=== PATIENT | female | born 1980 | race American Indian/Alaskan Native ===

== ENCOUNTER 2016-11-05 14:29 | Emergency (ER) | payer MEDICAID, OTHER ==
[2016-11-05 16:21] VITALS: BP 101/57
--- NOTE | 2016-11-05 17:54 | EDM.PDOC ---
ED HPI GENERAL MEDICAL PROBLEM - General Chief Complaint: Genitourinary Problem Stated Complaint: SICK, VOMITING, HEADACHE, PAIN IN LOWER BACK Time Seen by Provider: 11/05/16 17:51 Source of Information: Reports: Patient History Limitations: Reports: No Limitations - History of Present Illness INITIAL COMMENTS - FREE TEXT/NARRATIVE: 36 yo female presents with c/o bialteral flank pain and possible UTI. States that she has only a right kidney and on Monday she began having flulike symptoms that have decreased but now she is having the flank pain. States that she is incontinent due to previous injury. States that seh did have vomiting of phlegm on Monday as well. No other complaints Onset: Gradual Onset Date: 10/31/16 Duration: Getting Worse Location: Reports: Abdomen, Back Quality: Reports: Ache Severity: Moderate Improves with: Reports: None Worsens with: Reports: None Associated Symptoms: Reports: No Other Symptoms Bilateral Flank Pain Score (Numeric/FACES): 10 - Related Data Allergies Allergy/AdvReac Type Severity Reaction Status Date / Time morphine Allergy Vomiting Verified 03/08/16 19:44 Home Meds: Home Meds Ibuprofen [Advil] 200 mg PO Q6H PRN 02/04/13 [History] Past Medical History - Past Health History Medical/Surgical History: Denies Medical/Surgical History Genitourinary History: Reports: UTI, Recurrent, Other (See Below) Other Genitourinary History: kidney removed, History of spina befida - Past Surgical History GI Surgical History: Reports: Cholecystectomy Female Surgical History: Reports: Section, Other (See Below) Social & Family History - Family History Family Medical History: Noncontributory - Tobacco Use Smoking Status *Q: Never Smoker Second Hand Smoke Exposure: No - Caffeine Use Caffeine Use: Reports: Coffee, Soda - Alcohol Use Days Per Week of Alcohol Use: 2 Number of Drinks Per Day: 4 Total Drinks Per Week: 8 - Recreational Drug Use Recreational Drug Use: No ED ROS GENERAL - Review of Systems Review Of Systems: ROS reveals no pertinent complaints other than HPI. ED EXAM, RENAL/ - Physical Exam Exam: See Below Exam Limited By: No Limitations General Appearance: Alert, WD/WN, No Apparent Distress Respiratory/Chest: No Respiratory Distress, Lungs Clear, Normal Breath Sounds, No Accessory Muscle Use, Chest Non-Tender Cardiovascular: Normal Peripheral Pulses, Regular Rate, Rhythm, No Edema, No Gallop, No JVD, No Murmur, No Rub GI/Abdominal: Normal Bowel Sounds, Soft, Non-Tender, No Organomegaly, No Distention, No Abnormal Bruit, No Mass Back Exam: Normal Inspection, Full Range of Motion, CVA Tenderness (R) Extremities: Normal Inspection, Normal Range of Motion, Non-Tender, Normal Capillary Refill, No Pedal Edema Neurological: Alert, Oriented, CN II-XII Intact, Normal Cognition, Normal Gait, No Motor/Sensory Deficits Skin Exam: Warm, Dry, Intact, Normal Color, No Rash Course - Vital Signs Last Recorded V/S: Last Vital Signs Temp 98.8 F 11/05/16 16:20 Pulse 90 11/05/16 16:20 Resp 16 11/05/16 16:20 BP 101/57 L 11/05/16 16:20 Pulse Ox 100 11/05/16 16:20 - Orders/Labs/Meds Orders: Active Orders 24 hr Category Date Time Status CULTURE URINE [RM] Stat Lab 11/05/16 17:45 Received Labs: Laboratory Tests 11/05/16 11/05/16 11/05/16 Range/Units 17:45 18:05 18:05 WBC 8.5 (5.0-10.0) 10^3/uL RBC 4.33 (4.2-5.4) 10^6/uL Hgb 11.6 L (12.0-16.0) g/dL Hct 36.0 L (37.0-47.0) % MCV 83.1 (80-100) fL MCH 26.8 L (27.0-34.0) pg MCHC 32.2 L (33.0-35.0) g/dL Plt Count 425 (150-450) 10^3/uL Neut % (Auto) 78.2 H (42.2-75.2) % Lymph % (Auto) 9.6 L (20.5-50.1) % [place] % (Auto) 11.5 H (2-8) % Eos % (Auto) 0.6 L (1.0-3.0) % Baso % (Auto) 0.1 (0.0-1.0) % Sodium 136 (135-145) mmol/L Potassium 3.8 (3.6-5.0) mmol/L Chloride 104 (101-111) mmol/L Carbon Dioxide 20.0 L (21.0-31.0) mmol/L Anion Gap 15.8 BUN 10 (7-18) mg/dL Creatinine 1.1 (0.6-1.3) mg/dL Est Cr Clr Drug Dosing 55.69 mL/min Estimated GFR (MDRD) 56 BUN/Creatinine Ratio 9.09 Glucose 100 (74-105) mg/dL Calcium 9.0 (8.4-10.2) mg/dl Total Bilirubin 0.5 (0.2-1.0) mg/dL AST 15 (10-42) IU/L ALT 26 (10-60) IU/L Alkaline Phosphatase 119 (42-121) IU/L Total Protein 8.1 (6.7-8.2) g/dl Albumin 3.6 (3.2-5.5) g/dl Globulin 4.5 Albumin/Globulin Ratio 0.80 Urine Color Yellow (YELLOW) Urine Appearance Slightly cloudy (CLEAR) Urine pH 6.0 (5.0-9.0) Ur Specific [place] 1.010 (1.005-1.030) Urine Protein 30 H (NEGATIVE) Urine Glucose (UA) Negative (NEGATIVE) Urine Ketones Negative (NEGATIVE) Urine Occult Blood Trace-intact H (NEGATIVE) Urine Nitrite Negative (NEGATIVE) Urine Bilirubin Negative (NEGATIVE) Urine Urobilinogen 0.2 (0.2-1.0) mg/dL Ur Leukocyte Esterase Large H (NEGATIVE) Urine RBC 0-5 /HPF Urine WBC 40-50 H (0-5/HPF) /HPF Ur Epithelial Cells Moderate H /HPF Amorphous Sediment Few (0/HPF) /HPF Urine Bacteria Moderate H (0-FEW/HPF) /HPF Meds: Medications Discontinued Medications Generic Name Dose Route Start Last Admin Trade Name Freq PRN Reason Stop Dose Admin Ketorolac Tromethamine 30 mg 11/05/16 18:37 Toradol IVPUSH 11/05/16 18:38 ONETIME ONE Trimethoprim/Sulfamethoxazole 1 tab 11/05/16 18:37 Septra Ds PO 11/05/16 18:38 ONETIME ONE Departure - Departure Time of Disposition: 18:43 Disposition: Home, Self-Care 01 Condition: Good Clinical Impression: UTI, Urinary tract infectious disease - Discharge Information Instructions: Urinary Tract Infection, Adult, [id number] Forms: ED Department Discharge Additional Instructions: Drink plenty of water. Take Bactrim as directed. Take the pyridium as needed for bladder spasm. Return for any worsening symptoms. Follow up with your PCP. - My Orders Last 24 Hours: My Active Orders 11/05/16 17:45 CULTURE URINE [RM] Stat - Assessment/Plan Last 24 Hours: My Active Orders 11/05/16 17:45 CULTURE URINE [RM] Stat
[2016-11-05] MEDS ORDERED: Ketorolac 30 MG/ML SDV IVPUSH ONE (18:37)
[2016-11-05] MEDS ORDERED: Sulfamethoxazole/Trimethoprim 800-160 MG Tab PO ONE (18:37)
[2016-11-05] MEDS ORDERED: Ketorolac 30 MG/ML SDV IM ONE (18:57)
== END 2016-11-05 19:12 | disposition home or self-care (01) ==
LOC: DL.ED 14:29
DX: N39.0 Urinary tract infection, site not specified (principal); Z90.49 Acquired absence of other specified parts of digestive tract; Z90.5 Acquired absence of kidney; Z88.5 Allergy status to narcotic agent
CPT/HCPCS: 36415; 80053; 81001; 85025; 87086; 87088; 87186; 96372; 99283; A9270; J1885; J2360

== ENCOUNTER 2018-07-21 07:23 | Inpatient (IN) | payer MEDICAID ==
[2018-07-21] MEDS: Lactated Ringers 1,000 ML IV SCH ×5 (08:05→20:59)
[2018-07-21] MEDS ORDERED: Lactated Ringers 500 ML IV ONE ×2 (08:14→18:30)
[2018-07-21] MEDS ORDERED: Methylergonovine 0.2 MG/1 ML Amp IM PRN (08:53)
[2018-07-21] MEDS ORDERED: Ondansetron 4 MG/2 ML SDV IV PRN (08:53)
[2018-07-21] MEDS ORDERED: Acetaminophen 325 MG Tab PO PRN (08:53)
[2018-07-21] MEDS ORDERED: Citric Acid/Sodium Citrate Solution 30 ML Cup PO ONE (08:53)
[2018-07-21] MEDS ORDERED: Naloxone 2 MG/2 ML Syringe IVPUSH PRN (08:53)
[2018-07-21] MEDS ORDERED: Tranexamic Acid 1,000 MG in Sodium Chloride 0.9% 100 ML IV PRN (08:53)
[2018-07-21] MEDS ORDERED: Carboprost Tromethamine 250 MCG/1 ML Amp IM ONE (08:53)
[2018-07-21] MEDS ORDERED: ceFAZolin 2 GM in Premix Bag 1 BAG IV ONE (08:53)
[2018-07-21] MEDS ORDERED: ePHEDrine 50 MG/ML SDV IVPUSH PRN (08:53)
[2018-07-21] MEDS ORDERED: Misoprostol 400 MCG (4 X 100 MCG TAB) RECTAL PRN (08:53)
[2018-07-21] MEDS ORDERED: Oxytocin/Normal Saline 30 UNIT/500 ML BAG IV SCH (09:00)
[2018-07-21] MEDS: diphenhydrAMINE 50 MG/ML SDV IVPUSH PRN (12:50)
[2018-07-21] MEDS: Simethicone 80 MG Tab.Chew PO SCH ×4 (12:50→21:06)
[2018-07-21] MEDS: Prenatal Multivitamin with Calcium/Folic Acid/Iron Tab PO SCH (13:39)
[2018-07-21] MEDS: Ketorolac 30 MG/ML SDV IVPUSH SCH ×2 (16:19→23:53)
[2018-07-22] MEDS: Lactated Ringers 1,000 ML IV SCH ×4 (00:08→14:46)
[2018-07-22] MEDS: Ketorolac 30 MG/ML SDV IVPUSH SCH (06:02)
[2018-07-22] MEDS: Simethicone 80 MG Tab.Chew PO SCH ×4 (08:45→20:30)
[2018-07-22] MEDS: diphenhydrAMINE 50 MG/ML SDV IVPUSH PRN (08:45)
[2018-07-22] MEDS: Prenatal Multivitamin with Calcium/Folic Acid/Iron Tab PO SCH (08:45)
[2018-07-22] MEDS: Acetaminophen/oxyCODONE 325-5 MG Tab PO PRN ×3 (08:45→22:37)
[2018-07-22] MEDS: Docusate Sodium 100 MG Cap PO PRN ×2 (08:46→20:30)
[2018-07-22] MEDS: Ibuprofen 800 MG Tab PO PRN ×2 (14:50→22:37)
[2018-07-23] MEDS: Acetaminophen/oxyCODONE 325-5 MG Tab PO PRN ×5 (04:12→20:31)
[2018-07-23] MEDS: Ibuprofen 800 MG Tab PO PRN ×2 (08:05→20:30)
[2018-07-23] MEDS: Prenatal Multivitamin with Calcium/Folic Acid/Iron Tab PO SCH (08:05)
[2018-07-23] MEDS: Docusate Sodium 100 MG Cap PO PRN ×2 (08:06→20:30)
[2018-07-23] MEDS ORDERED: Lactated Ringers 1,000 ML IV ONE (09:43)
[2018-07-23] MEDS ORDERED: Ketorolac 30 MG/ML SDV IVPUSH ONE (09:43)
[2018-07-23] MEDS ORDERED: Morphine PF 1 MG/ML Amp ONE (09:43)
[2018-07-23] MEDS: Simethicone 80 MG Tab.Chew PO SCH ×4 (10:05→20:30)
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
--- NOTE | 2018-07-23 12:34 | PN ---
DATE: 07/22/2018 Postop day #1 status post repeat low-transverse . SUBJECTIVE: Nurses note some concerns with urine output throughout the night. IV fluids have been given in regard to this. The patient today denies any chest pain, shortness of breath, or lightheadedness. She has been passing flatus. Pain is under control. OBJECTIVE: Vital Signs: Temperature 98.6, heart rate between 55 and 79, blood pressure 96/66, recheck 87/42, respiratory rate is between 16 and 18, O2 sats 99% to 100% on room air. Appearance: In no apparent distress. Lungs: Clear to auscultation bilaterally. Heart: S1, S2. Regular rhythm. Abdomen: Firm uterus, -1 below umbilicus. Aquacel dressing has mild shadowing in the center portion of the Aquacel less than 3 cm in diameter. Extremities: No peripheral edema. No calf pain. LABORATORY DATA: White cell count 9.6, hemoglobin 9.4, down to 6.9, and platelets 182,000 down to 128,000. ASSESSMENT: 1. Postoperative day #1, status post repeat low- transverse . 2. Decreased urine output. The patient was followed closely throughout the night. IV fluids were given and over the last 2 hours has had over 100 mL out. We will continue to follow clinically and closely. 3. Positive urine drug screen for methamphetamines and amphetamines. We will follow for any signs or symptoms in regard to this. 4. Anemia of acute blood loss with hemoglobin dropping down to 6.9. I suspect that hemoglobin may be falsely low based on the amount of fluid the patient has been getting for her lower urine output. We will continue to follow closely. The patient denies any signs or symptoms of significant anemia. 5. Gestational thrombocytopenia versus dilutional in nature. We will recheck CBC tomorrow. No significant active bleeding is noted now. PLAN: As above. We will continue to follow clinically and closely. [facility] /[id number] RUSSELL
--- NOTE | 2018-07-23 12:37 | PN ---
DATE: 07/23/2018 Postoperative day #2, status post repeat low transverse . SUBJECTIVE: The patient is tolerating p.o., is passing flatus. She is incontinent of urine with her neurogenic bladder. She states her swelling has gone down significantly. OBJECTIVE: Vital Signs: Temperature 97.4, heart rate 68, blood pressure 124/61, respiratory rate 16. Lungs: Clear to auscultation bilaterally. Heart: S1, S2. Regular rhythm. Pelvic: Firm uterus around -1 below umbilicus. Aquacel dressing appears to be stable in terms of shadowing noticed yesterday. Extremities: Trace pedal edema. LABORATORY DATA: White cell count 8, hemoglobin 8.2 compared to 6.9 yesterday and 9.4 predelivery, and platelets of 165 compared to 128 yesterday. ASSESSMENT: 1. Postoperative day #2, status post repeat low transverse section. 2. Anemia, acute blood loss with hemoglobin dropping down to lowest of 6.9, suspect this is delusional in nature with multiple fluids given as postop day #1, she was having issues with urine output and received boluses of fluid. 3. Gestational/ thrombocytopenia-resolved. 4. Positive urine drug screen for methamphetamines and amphetamines, Social Service has been consulted. PLAN: We will continue to follow clinically and closely. Possible discharge tomorrow. Discussed with the patient. She understands and agrees. [facility] /[id number]
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
[2018-07-24] MEDS: Acetaminophen/oxyCODONE 325-5 MG Tab PO PRN ×3 (01:06→08:54)
[2018-07-24] MEDS: Ibuprofen 800 MG Tab PO PRN (05:40)
[2018-07-24 07:31] VITALS: PULSE 89
[2018-07-24] MEDS: Simethicone 80 MG Tab.Chew PO SCH (08:53)
[2018-07-24] MEDS: Docusate Sodium 100 MG Cap PO PRN (08:54)
[2018-07-24] MEDS: Prenatal Multivitamin with Calcium/Folic Acid/Iron Tab PO SCH (08:54)
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
== END 2018-07-24 10:20 | disposition home or self-care (01) | DRG 787 ==
LOC: DL.OBCHECK 07:23 → DL.OB 09:23 → UNDOADMIN 09:23 → DL.OB 09:49 → UNDOADMIN 10:12 → DL.OB 10:12 → UNDODISIN 07-24 10:20
PROVIDERS: ADMIT Family Medicine; ATTEND Family Medicine
PROC: 10D00Z1 Extraction of Products of Conception, Low, Open Approach (ICD-10-PCS; principal; 2018-07-21)
DX: O34.211 Maternal care for low transverse scar from previous cesarean delivery (principal); D62 Acute posthemorrhagic anemia; O99.12 Other diseases of the blood and blood-forming organs and certain disorders involving the immune mechanism complicating childbirth; O99.353 Diseases of the nervous system complicating pregnancy, third trimester; N31.9 Neuromuscular dysfunction of bladder, unspecified; O99.02 Anemia complicating childbirth; D69.6 Thrombocytopenia, unspecified; Z3A.37 37 weeks gestation of pregnancy; Z37.0 Single live birth
CPT/HCPCS: 36415; 51702; 80305-QW; 85027; 86803; 86850; 86900; 86901; 94010; A4217; A9270-GY; J0690; J1200; J1885; J2274; J2590; J7120

== ENCOUNTER 2020-10-20 01:26 | Emergency (ER) | payer SELFPAY ==
[2020-10-20] MEDS ORDERED: Naloxone 2 MG/2 ML Syringe ONE (01:37)
[2020-10-20] MEDS ORDERED: Naloxone 2 MG/2 ML Syringe IVPUSH ONE (01:40)
[2020-10-20] MEDS ORDERED: Ondansetron 4 MG/2 ML SDV ONE (01:55)
[2020-10-20 02:12] LABS: AMPHETAMINES,URINE NEGATIVE (NEGATIVE); BARBITURATES,URINE NEGATIVE (NEGATIVE); BENZODIAZEPINE,URINE NEGATIVE (NEGATIVE); MDMA (ECSTASY), URINE NEGATIVE (NEGATIVE); METHADONE,URINE NEGATIVE (NEGATIVE); METHAMPHETAMINES,URINE POSITIVE (NEGATIVE); OPIATES,URINE NEGATIVE (NEGATIVE); OXYCODONE,URINE NEGATIVE (NEGATIVE); PHENCYCLIDINE,URINE NEGATIVE (NEGATIVE); TCA,URINE NEGATIVE (NEGATIVE)
[2020-10-20 02:35] LABS: CHLORIDE,CL 109 mmol/L (98-107); SODIUM,NA 145 mmol/L (136-145)
[2020-10-20] MEDS ORDERED: Ondansetron 4 MG/2 ML SDV IVPUSH ONE (02:36)
[2020-10-20] MEDS ORDERED: Sodium Chloride 0.9% 1,000 ML IV ONE (02:38)
--- NOTE | 2020-10-20 02:59 | CT ---
PROCEDURE INFORMATION: Exam: CT Head Without Contrast Exam date and time: 10/20/2020 2:19 AM Age: 40 years old Clinical indication: Other: Altered mentation TECHNIQUE: Imaging protocol: Computed tomography of the head without contrast. Radiation optimization: All CT scans at this facility use at least one of these dose optimization techniques: automated exposure control; mA and/or kV adjustment per patient size (includes targeted exams where dose is matched to clinical indication); or iterative reconstruction. COMPARISON: No relevant prior studies available. FINDINGS: Brain: Normal. No hemorrhage. Unremarkable white matter. No mass effect. Cerebral ventricles: No ventriculomegaly. Paranasal sinuses: Visualized sinuses are unremarkable. No fluid levels. Mastoid air cells: Visualized mastoid air cells are well aerated. Bones/joints: Partially imaged age-indeterminate fractures of the superior nasal bones. Soft tissues: Mild soft tissue swelling of the left forehead. IMPRESSION: Mild soft tissue swelling of the left forehead, possible mild contusion. No acute intracranial abnormality.
--- NOTE | 2020-10-20 03:01 | CR ---
PROCEDURE INFORMATION: Exam: XR Chest Exam date and time: 10/20/2020 2:29 AM Age: 40 years old Clinical indication: Other: Altered mentation TECHNIQUE: Imaging protocol: XR of the chest. Views: 1 view. COMPARISON: No relevant prior studies available. FINDINGS: Lungs: Unremarkable. No consolidation. Pleural spaces: Unremarkable. No pleural effusion. No pneumothorax. Heart/Mediastinum: Unremarkable. No cardiomegaly. Bones/joints: Unremarkable. Intraperitoneal space: Surgical clips in the left abdomen. IMPRESSION: No acute findings.
[2020-10-20] MEDS ORDERED: MVI, Adult with Vitamin K 10 ML, Folic Acid 1 MG, Thiamine 100 MG in Lactated Ringers 1... IV ONE ×4 (05:33)
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
[2020-10-20 07:11] VITALS: BP 128/103; PULSE 98
== END 2020-10-20 08:00 | disposition home or self-care (01) ==
LOC: DL.ED 01:26
DX: F10.10 Alcohol abuse, uncomplicated (principal); S00.03XA Contusion of scalp, initial encounter; D64.9 Anemia, unspecified; Y90.8 Blood alcohol level of 240 mg/100 ml or more; Z88.5 Allergy status to narcotic agent; Z79.899 Other long term (current) drug therapy; X58.XXXA Exposure to other specified factors, initial encounter
CPT/HCPCS: 36415; 51702; 70450; 71045; 80053; 80305; 80307; 82947; 84703; 85025; 96365; 96375; 99285; J2310; J2405; J3411; J7030; J7120; J3490

== ENCOUNTER 2024-06-19 19:20 | Emergency (ER) | payer MEDICAID ==
[2024-06-19] MEDS ORDERED: LORazepam 2 MG/ML SDV ONE (19:46)
[2024-06-19] MEDS ORDERED: LORazepam 2 MG/ML SDV IVPUSH ONE (19:47)
[2024-06-19 19:52] LABS: BASOPHILS PERCENT AUTO 1.2 % (0.0-1.0); EOSINOPHILS PERCENT AUTO 1.9 % (1.0-3.0); HEMATOCRIT 32.2 % (37.0-47.0); HEMOGLOBIN 9.9 g/dL (12.0-16.0); LYMPHOCYTES PERCENT AUTO 27.2 % (20.5-50.1); MEAN CORPUSCULAR HEMOGLOBIN 25.7 pg (27.0-34.0); MEAN CORPUSCULAR HGB CONC 30.7 g/dL (33.0-35.0); MEAN CORPUSCULAR VOLUME 83.6 fL (80-100); MONOCYTES PERCENT AUTO 12.9 % (2-8); NEUTROPHILS PERCENT AUTO 56.8 % (42.2-75.2); PLATELET COUNT,PLT 263 10^3/uL (150-450); RED BLOOD CELL COUNT 3.85 10^6/uL (4.2-5.4); WHITE BLOOD CELL COUNT,WBC 5.2 10^3/uL (5.0-10.0)
[2024-06-19 20:09] LABS: INR 0.9 (0.9-1.2); PROTHROMBIN TIME 9.9 SEC (9.0-12.0); PTT,PARTIAL THROMBOPLSTIN TIME 27.4 SEC (22.0-34.0)
[2024-06-19 20:17] LABS: HCG QUALITATIVE,SERUM NEGATIVE (NEGATIVE)
[2024-06-19 20:22] LABS: A/G RATIO 0.58; ALANINE AMINOTRANSFERASE,ALT 103 U/L (14-59); ALKALINE PHOSPHATASE 220 U/L (46-116); ANION GAP 14.5 mEq/L (7-13); ASPARTATE AMNIOTRANSFERASE,AST 104 U/L (15-37); BILIRUBIN TOTAL 0.2 mg/dL (0.2-1.0); BLOOD UREA NITROGEN,BUN 11 mg/dL (7-18); BUN/CREATININE RATIO 14.9 (No establ ref range); CALCIUM 8.6 mg/dL (8.5-10.1); CARBON DIOXIDE,CO2 23 mmol/L (21-32); CHLORIDE,CL 111 mmol/L (98-107); CREATINE KINASE,CK 89 U/L (16-191); CREATININE 0.74 mg/dL (0.55-1.02); ESTIMATED GFR 103 mL/min (>=60); GLUCOSE RANDOM 99 mg/dL (70-99); LIPASE 195 U/L (16-77); MAGNESIUM 2.1 mg/dL (1.8-2.4); POTASSIUM,K 3.5 mmol/L (3.5-5.1); PROTEIN TOTAL,TP 8.2 g/dL (6.4-8.2); SODIUM,NA 145 mmol/L (136-145)
[2024-06-19 20:23] LABS: ETHANOL BLOOD MEDICAL 414 mg/dL (0); LACTIC ACID 2.1 mmol/L (0.4-2.0)
[2024-06-19] MEDS ORDERED: MVI, Adult with Vitamin K 10 ML, Folic Acid 1 MG, Thiamine 100 MG in Lactated Ringers 1... IV ONE (20:42)
[2024-06-19 20:43] LABS: APPEARANCE,URINE CLEAR (CLEAR); BILIRUBIN,URINE NEGATIVE (NEGATIVE); COLOR,URINE YELLOW (YELLOW); GLUCOSE,URINE NEGATIVE (NEGATIVE); KETONES,URINE NEGATIVE (NEGATIVE); LEUKOCYTE ESTERASE,URINE NEGATIVE (NEGATIVE); NITRITE,URINE NEGATIVE (NEGATIVE); OCCULT BLOOD,URINE NEGATIVE (NEGATIVE); PROTEIN,URINE NEGATIVE (NEGATIVE); UROBILINOGEN,URINE 0.2 mg/dL (0.2-1.0)
[2024-06-19 20:47] LABS: AMPHETAMINES,URINE NEGATIVE (NEGATIVE); BARBITURATES,URINE NEGATIVE (NEGATIVE); BENZODIAZEPINE,URINE NEGATIVE (NEGATIVE); MDMA (ECSTASY), URINE NEGATIVE (NEGATIVE); METHADONE,URINE NEGATIVE (NEGATIVE); METHAMPHETAMINES,URINE NEGATIVE (NEGATIVE); OPIATES,URINE NEGATIVE (NEGATIVE); OXYCODONE,URINE NEGATIVE (NEGATIVE); PHENCYCLIDINE,URINE NEGATIVE (NEGATIVE); TCA,URINE NEGATIVE (NEGATIVE)
[2024-06-19] MEDS: Sodium Chloride 0.9% 1,000 ML IV ONE (22:12)
[2024-06-20] MEDS: Iopamidol 612 MG/ML 100 ML Bottle IVPUSH ONE (00:15)
[2024-06-20 00:25] VITALS: BP 101/65; PULSE 61
== END 2024-06-20 06:17 | disposition home or self-care (01) ==
LOC: DL.ED 19:20
DX: F10.120 Alcohol abuse with intoxication, uncomplicated (principal); Q62.11 Congenital occlusion of ureteropelvic junction; Z88.5 Allergy status to narcotic agent; Z79.899 Other long term (current) drug therapy; Y90.9 Presence of alcohol in blood, level not specified
CPT/HCPCS: 36415; 70450; 71045; 71260; 72125; 74177; 80053; 80305; 80307; 81003; 82550; 83605; 83690; 83735; 84484; 84703; 85025; 85610; 85730; 93005; 96361; 96365; 96375; 99285; J7030; Q9967; 93010; 99284